=== PATIENT | male | born 1960 | race Caucasian/White ===

== ENCOUNTER 2018-08-11 09:36 | Emergency (ER) | payer MEDICAID ==
--- NOTE | 2018-08-11 10:35 | EDM.PDOC ---
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 He assumed his symptoms were from that, he does not get chest pain or shortness of breath with activity. Pain usually resolves after a few minutes but this morning while at work it redeveloped and was persistent so he thought it checked out. He has no shortness of breath, diaphoresis, radiation of pain, pain with breathing, cough or other symptoms. Duration: Week(s): (Symptoms have been intermittent for the past 7-10 days) Location: Reports: Chest Worsens with: Reports: Rest (Seem to be worse with rest today) Associated Symptoms: Denies: Cough, Diaphoresis, Fever/Chills, Loss of Appetite , Nausea/Vomiting, Shortness of Breath Chest Pain Score (Numeric/FACES): 5 - Related Data Allergies Allergy/AdvReac Type Severity Reaction Status Date / Time No Known Allergies Allergy Verified 08/11/18 09:49 Home Meds: Home Meds Aspirin [Halfprin] 81 mg PO DAILY 08/11/18 [History] Past Medical History HEENT History: Reports: Otitis Media Genitourinary History: Reports: Renal Calculus Musculoskeletal History: Reports: Fracture - Past Surgical History HEENT Surgical History: Reports: Other (See Below) Other HEENT Surgeries/Procedures: ear surgery GI Surgical History: Reports: Appendectomy Social & Family History - Tobacco Use Smoking Status *Q: Never Smoker - Caffeine Use Caffeine Use: Reports: Coffee - Recreational Drug Use Recreational Drug Use: No ED ROS GENERAL - Review of Systems Review Of Systems: See Below Constitutional: Denies: Fever, Chills HEENT: Denies: Throat Pain Respiratory: Reports: Other (Patient had a significant cold over the past 3 weeks with cough and fever, that has resolved in the last 7-10 days) Cardiovascular: Reports: Chest Pain, Blood Pressure Problem (Admits that his normal systolic blood pressures between 160 and 170, in the emergency room here today it's 195) GI/Abdominal: Denies: Nausea, Vomiting : Reports: No Symptoms Skin: Reports: No Symptoms Neurological: Denies: Dizziness, Headache Psychiatric: Reports: No Symptoms ED EXAM, GENERAL - Physical Exam Exam: See Below Exam Limited By: No Limitations General Appearance: Alert, No Apparent Distress Eye Exam: Bilateral Eye: Normal Inspection Throat/Mouth: Normal Inspection Head: Atraumatic Respiratory/Chest: No Respiratory Distress, Lungs Clear, Other (I can reproduce some chest tenderness with palpation of the right anterior chest, patient is unsure if it's the same) Cardiovascular: Regular Rate, Rhythm, No Murmur. No: Bradycardia, Tachycardia GI/Abdominal: Soft, Non-Tender Extremities: Normal Inspection. No: Pedal Edema Neurological: Alert, Oriented, CN II-XII Intact Psychiatric: Normal Affect, Normal Mood Skin Exam: Warm, Dry EKG INTERPRETATION Rhythm: NSR Course - Vital Signs Last Recorded V/S: Last Vital Signs Temp 94.8 F L 08/11/18 09:53 Pulse 57 L 08/11/18 11:23 Resp 16 08/11/18 11:23 BP 151/89 H 08/11/18 11:52 Pulse Ox 98 08/11/18 11:23 - Orders/Labs/Meds Labs: Laboratory Tests 08/11/18 08/11/18 Range/Units 10:31 10:31 WBC 7.1 (4.5-11.0) K/uL RBC 5.81 (4.30-5.90) M/uL Hgb 16.0 H (12.0-15.0) g/dL Hct 47.7 (40.0-54.0) % MCV 82 (80-98) fL MCH 28 (27-31) pg MCHC 34 (32-36) % Plt Count 147 L (150-400) K/uL Neut % (Auto) 70 H (36-66) % Lymph % (Auto) 20 L (24-44) % [place] % (Auto) 7 H (2-6) % Eos % (Auto) 2 (2-4) % Baso % (Auto) 1 (0-1) % Sodium 139 L (140-148) mmol/L Potassium 4.3 (3.6-5.2) mmol/L Chloride 103 (100-108) mmol/L Carbon Dioxide 29 (21-32) mmol/L Anion Gap 11.3 (5.0-14.0) mmol/L BUN 18 (7-18) mg/dL Creatinine 1.1 (0.8-1.3) mg/dL Est Cr Clr Drug Dosing 88.55 mL/min Estimated GFR (MDRD) > 60 (>60) Glucose 220 H (74-106) mg/dL Calcium 9.3 (8.5-10.1) mg/dL Total Bilirubin 0.7 (0.2-1.0) mg/dL AST 25 (15-37) U/L ALT 46 (12-78) U/L Alkaline Phosphatase 100 (46-116) U/L Troponin I 0.227 H* (0.000-0.056) ng/mL Total Protein 7.2 (6.4-8.2) g/dL Albumin 3.7 (3.4-5.0) g/dL Globulin 3.5 (2.3-3.5) g/dL Albumin/Globulin Ratio 1.1 L (1.2-2.2) Meds: Medications Discontinued Medications Generic Name Dose Route Start Last Admin Trade Name Gordonq PRN Reason Stop Dose Admin Aspirin 324 mg 08/11/18 11:02 08/11/18 11:12 Aspirin PO 08/11/18 11:03 324 mg ONETIME ONE Administration Heparin Sodium (Porcine) 5,000 units 08/11/18 11:17 08/11/18 11:26 Heparin Sodium IVPUSH 08/11/18 11:18 5,000 units ONETIME ONE Administration Heparin Sodium/Dextrose 25,000 units in 500 mls @ 20 mls/hr 08/11/18 11:30 11:31 Heparin 25,000 Units In D5w 500 Ml IV 1,000 units/hr TITRATE DARYL 20 mls/hr Administration Protocol 1,000 UNITS/HR Nitroglycerin 0.4 mg 08/11/18 11:07 08/11/18 11:52 Nitrostat SL 08/11/18 11:08 0.4 mg ONETIME ONE Administration Nitroglycerin Confirm 08/11/18 11:08 Nitrostat Administered 08/11/18 11:09 Dose 0.4 mg .ROUTE .STK-MED ONE - Re-Assessments/Exams Free Text/Narrative Re-Assessment/Exam: 08/11/18 10:35 EKG was done on patient arrival in its normal sinus rhythm. A two-view chest x- ray, CBC, CMP and troponin were obtained. 08/11/18 11:22 Two-view chest x-ray was normal, CBC normal, CMP revealed a glucose of 220 his troponin returned elevated at 0.227. He was given an additional 324 mg of chewable aspirin in addition to his full dose aspirin he had earlier this morning. I discussed his condition with cardiology in [place] at 11 AM, and they recommended transfer after a heparin bolus and drip. He was also given 1 sublingual nitroglycerin. His blood pressure normalized from a systolic of 195 to 164 without treatment. 08/11/18 17:17 Pain did resolve with the sublingual nitroglycerin. A nitroglycerin drip was initiated by EMS in route to [place]. Departure - Departure Time of Disposition: 11:36 Disposition: DC/Tfer to Other Clinical Impression: Acute coronary syndrome - Discharge Information Referrals: PCP,None [Primary Care Provider] - Forms: ED Department Discharge Care Plan Goals: Patient was sent to [place] by ambulance on a heparin drip, to be evaluated by cardiology for symptoms and laboratory evidence of possible non-STEMI.
--- NOTE | 2018-08-11 10:55 | CRLCR ---
INDICATION: Dyspnea TECHNIQUE: Chest 2 views. COMPARISON: 02/20/2009. FINDINGS: The heart size is borderline enlarged. Central vascular markings are within the normal range. The lungs are clear. There are no pleural effusions. Mild spondylosis changes present throughout the thoracic spine. IMPRESSION: No acute cardiopulmonary disease is evident. Dictated by Jeremi Styles MD @ Aug 11 2018 10:53AM Signed by Dr. Jeremi Styles @ Aug 11 2018 10:54AM
[2018-08-11] MEDS ORDERED: Aspirin 81 MG Tab.Chew PO ONE (11:02)
[2018-08-11] MEDS ORDERED: Nitroglycerin 0.4 MG Tab.SL ONE (11:08)
[2018-08-11] MEDS: Nitroglycerin 0.4 MG Tab.SL SL ONE ×2 (11:13→11:52)
[2018-08-11] MEDS ORDERED: Heparin Sodium 5,000 Units/ML Vial IVPUSH ONE (11:17)
[2018-08-11] MEDS ORDERED: Heparin Sodium/D5W 25,000 UNITS/500 ML BAG IV SCH (11:30)
== END 2018-08-11 11:59 | disposition other institution (70) ==
LOC: JP.ED 09:36
DX: I24.9 Acute ischemic heart disease, unspecified (principal); Z90.49 Acquired absence of other specified parts of digestive tract; Z79.82 Long term (current) use of aspirin
CPT/HCPCS: 36415; 71046; 80053; 84484; 85025; 93005; 96374; 99285; A9270; J1644

== ENCOUNTER 2018-08-26 10:54 | Emergency (ER) | payer MEDICAID ==
--- NOTE | 2018-08-26 11:20 | EDM.PDOC ---
ED HPI GENERAL MEDICAL PROBLEM - General Chief Complaint: Respiratory Problem Stated Complaint: FROM CLINIC HEART AND LUNG PRESSURES Time Seen by Provider: 08/26/18 11:15 Source of Information: Reports: Patient, Old Records, RN History Limitations: Reports: No Limitations - History of Present Illness INITIAL COMMENTS - FREE TEXT/NARRATIVE: 58 yo male here with SOB over the past couple of days that may be getting worse. Was seen in [facility] recently for a subacute VT and ended up with a CABG and a chest tube. He is not having any chest pain or fevers. No recent calf pain or LE edema. No hx of PE. Onset: Gradual Onset Date: 08/16/18 Duration: Getting Worse Location: Reports: Chest Quality: Reports: Other (no new pain) Severity: Mild Improves with: Reports: Rest Worsens with: Reports: Movement (exertion) Context: Reports: Other (see HPI) Associated Symptoms: Reports: No Other Symptoms. 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) (none) chest Pain Score (Numeric/FACES): 1 - Related Data Allergies Allergy/AdvReac Type Severity Reaction Status Date / Time No Known Allergies Allergy Verified 08/26/18 11:09 Home Meds: Home Meds Aspirin [Halfprin] 81 mg PO DAILY 08/11/18 [History] Acetaminophen/HYDROcodone [[place] 325-10 MG] 1 tab PO Q3H PRN 08/26/18 [History] Amiodarone [Cordarone] 200 mg PO BID 08/26/18 [History] Apixaban [Eliquis] 5 mg PO BID 08/26/18 [History] Furosemide 40 mg PO DAILY #7 tablet 08/26/18 [Rx] Metoprolol Tartrate [Lopressor] 100 mg PO BID 08/26/18 [History] Multivitamin [Multivitamins] 1 tab PO DAILY 08/26/18 [History] Omeprazole 20 mg PO DAILY 08/26/18 [History] atorvaSTATin [Lipitor] 20 mg PO BEDTIME 08/26/18 [History] metFORMIN [Glucophage] 1,000 mg OP BID 08/26/18 [History] Past Medical History HEENT History: Reports: Otitis Media Genitourinary History: Reports: Renal Calculus Musculoskeletal History: Reports: Fracture - Past Surgical History HEENT Surgical History: Reports: Other (See Below) Other HEENT Surgeries/Procedures: ear surgery GI Surgical History: Reports: Appendectomy Social & Family History - Caffeine Use Caffeine Use: Reports: Coffee ED ROS GENERAL - Review of Systems Review Of Systems: See Below Constitutional: Reports: No Symptoms HEENT: Reports: No Symptoms Respiratory: Reports: Shortness of Breath. Denies: Wheezing, Pleuritic Chest Pain, Cough, Sputum, Hemoptysis Cardiovascular: Reports: No Symptoms Endocrine: Reports: No Symptoms GI/Abdominal: Reports: No Symptoms : Reports: No Symptoms Musculoskeletal: Reports: No Symptoms Skin: Reports: No Symptoms Neurological: Reports: No Symptoms ED EXAM, GENERAL - Physical Exam Exam: See Below Exam Limited By: No Limitations General Appearance: Alert, WD/WN, No Apparent Distress Eye Exam: Bilateral Eye: Normal Inspection Ears: Normal External Exam, Normal Canal, Hearing Grossly Normal Ear Exam: Bilateral Ear: Auricle Normal, Canal Normal Nose: Normal Inspection, No Blood Throat/Mouth: Normal Inspection, Normal Lips, Normal Oropharynx, Normal Voice, No Airway Compromise Head: Atraumatic, Normocephalic Neck: Normal Inspection Respiratory/Chest: No Respiratory Distress, Decreased Breath Sounds (at bases), Crackles Cardiovascular: Regular Rate, Rhythm, No Edema Back Exam: Normal Inspection. No: CVA Tenderness (R), CVA Tenderness (L) Extremities: Normal Inspection, Normal Range of Motion, Non-Tender, No Pedal Edema Neurological: Alert, Oriented, CN II-XII Intact, Normal Cognition, No Motor/ Sensory Deficits Psychiatric: Normal Affect, Normal Mood Skin Exam: Warm, Dry, Intact, Normal Color, No Rash EKG INTERPRETATION EKG Date: 08/26/18 Time: 11:10 Rhythm: NSR Rate (Beats/Min): 89 [place]: Normal P-Wave: Present QRS: Normal ST-T: Normal QT: Normal Comparison: Change From Previous EKG (New flipped T's in anterior/lateral leads. ST segment subtle elevation now resolved. Poor R wave progression anterior leads has replaced the prior subtle ST elevation.) Course - Vital Signs Last Recorded V/S: Last Vital Signs Temp 36.1 C 08/26/18 11:15 Pulse 79 08/26/18 13:12 Resp 34 H 08/26/18 13:12 BP 113/55 L 08/26/18 13:12 Pulse Ox 97 08/26/18 13:12 - Orders/Labs/Meds Orders: Active Orders 24 hr Category Date Time Status Cardiac Monitoring [RC] .As Directed Care 08/26/18 11:14 Active Meds: Medications Discontinued Medications Generic Name Dose Route Start Last Admin Trade Name Chadd PRN Reason Stop Dose Admin Hydrocodone Bitart/Acetaminophen 1 tab 08/26/18 12:46 08/26/18 12:54 [place] 325-10 Mg PO 08/26/18 12:47 1 tab ONETIME ONE Administration - Radiology Interpretation Free Text/Narrative:: CXR-L pleural effusion(will compare to his discharge CXR at [facility]). No significant change noted when compared. Departure - Departure Time of Disposition: 13:45 Disposition: Home, Self-Care 01 Condition: Fair Clinical Impression: Pleural effusion, left, VELIZ (dyspnea on exertion) - Discharge Information *PRESCRIPTION DRUG MONITORING PROGRAM REVIEWED*: No *COPY OF PRESCRIPTION DRUG MONITORING REPORT IN PATIENT MELCHOR: No Prescriptions: Furosemide 40 mg PO DAILY #7 tablet Instructions: Pleural Effusion Referrals: Bobby Jha MD [Primary Care Provider] - Forms: ED Department Discharge Additional Instructions: Avoid salt. Take furosemide 40 mg every morning including one today. Activity as tolerated. F/U in the clinic with a doctor of your choice in the next week. Return if worse. - My Orders Last 24 Hours: My Active Orders 08/26/18 11:14 Cardiac Monitoring [RC] .As Directed - Assessment/Plan Last 24 Hours: My Active Orders 08/26/18 11:14 Cardiac Monitoring [RC] .As Directed
--- NOTE | 2018-08-26 12:06 | CR ---
CHEST: 2 view CLINICAL HISTORY:SOB COMPARISON:08/11/2018 FINDINGS: Patient has undergone interval sternotomy. Heart is enlarged. Pulmonary vascular areas cephalized. There is some mild interstitial prominence. Patient has a new moderate left effusion. There is a minimal right-sided blunting. Impression: Cardiomegaly with vascular cephalization Interval sternotomy New moderate left pleural effusion
[2018-08-26] MEDS ORDERED: Acetaminophen/HYDROcodone 325-10 MG Tab PO ONE (12:46)
== END 2018-08-26 14:17 | disposition home or self-care (01) ==
LOC: JP.ED 10:54
DX: J90 Pleural effusion, not elsewhere classified (principal); Z79.82 Long term (current) use of aspirin; Z79.899 Other long term (current) drug therapy; Z90.49 Acquired absence of other specified parts of digestive tract
CPT/HCPCS: 71046; 93005; 99284; A9270

== ENCOUNTER 2023-03-18 08:41 | Emergency (ER) | payer MEDICAID ==
[2023-03-18] MEDS ORDERED: Ketorolac 30 MG/ML SDV IM ONE (09:22)
== END 2023-03-18 10:36 | disposition home or self-care (01) ==
LOC: JP.ED 08:41
DX: S76.011A Strain of muscle, fascia and tendon of right hip, initial encounter (principal); I10 Essential (primary) hypertension; E78.00 Pure hypercholesterolemia, unspecified; I25.2 Old myocardial infarction; K21.9 Gastro-esophageal reflux disease without esophagitis; E11.9 Type 2 diabetes mellitus without complications; Z86.16 Personal history of COVID-19; Z95.1 Presence of aortocoronary bypass graft; Z90.49 Acquired absence of other specified parts of digestive tract; Z79.82 Long term (current) use of aspirin; Z79.899 Other long term (current) drug therapy; X58.XXXA Exposure to other specified factors, initial encounter
CPT/HCPCS: 73502; 96372; 99283; J1885

== ENCOUNTER 2023-10-26 12:59 | Emergency (ER) | payer MEDICAID ==
[2023-10-26 13:46] LABS: BASOPHILS ABSOLUTE AUTO 0.09 K/uL (0.00-0.10); BASOPHILS PERCENT AUTO 0.9 % (0.1-1.3); EOSINOPHILS ABSOLUTE AUTO 0.18 K/uL (0.00-0.40); EOSINOPHILS PERCENT AUTO 1.8 % (0.0-5.4); HEMATOCRIT 45.3 % (38.4-49.7); HEMOGLOBIN 15.8 g/dL (12.9-16.9); IMMATURE GRAN ABSOLUTE AUTO 0.03 K/uL (0.00-0.23); IMMATURE GRAN PERCENT AUTO 0.3 % (0.0-0.7); LYMPHOCYTES ABSOLUTE AUTO 2.95 K/uL (0.8-3.3); MEAN CORPUSCULAR HEMOGLOBIN 28.5 pg (31.6-35.5); MEAN CORPUSCULAR HGB CONC 34.9 g/dL (31.6-35.5); MEAN CORPUSCULAR VOLUME 81.8 fL (81.4-99.0); MONOCYTES ABSOLUTE AUTO 0.68 K/uL (0.20-0.90); MONOCYTES PERCENT AUTO 6.9 % (3.3-12.6); NEUTROPHILS PERCENT AUTO 60.1 % (40.0-78.1); PLATELET COUNT,PLT 183 K/uL (130-375); RED BLOOD CELL COUNT 5.54 M/uL (4.14-5.76); WHITE BLOOD CELL COUNT,WBC 9.8 K/uL (3.2-11.0)
[2023-10-26 13:54] LABS: INR 1.1; PTT,PARTIAL THROMBOPLSTIN TIME 24.7 sec (21.8-27.3)
[2023-10-26] MEDS: Sodium Chloride 0.9% 10 ML Syringe FLUSH ONE (13:54)
[2023-10-26] MEDS: Iopamidol 612 MG/ML 100 ML Bottle IV PRN (13:54)
[2023-10-26] MEDS: Sodium Chloride 0.9% 100 ML IV SCH (13:54)
[2023-10-26 13:57] LABS: A/G RATIO 1.1 (1.2-2.2); ALANINE AMINOTRANSFERASE,ALT 51 U/L (12-78); ALBUMIN 3.8 g/dL (3.4-5.0); ALKALINE PHOSPHATASE 79 U/L (46-116); ANION GAP 12.7 mmol/L (5.0-14.0); ASPARTATE AMNIOTRANSFERASE,AST 20 U/L (15-37); BILIRUBIN TOTAL 0.6 mg/dL (0.2-1.0); BLOOD UREA NITROGEN,BUN 15 mg/dL (7-18); CALCIUM 8.8 mg/dL (8.5-10.1); CARBON DIOXIDE,CO2 24 mmol/L (21-32); CHLORIDE,CL 104 mmol/L (100-108); CREATININE 1.2 mg/dL (0.8-1.3); EST CRCL DRUG DOSING (CG) 76.28 mL/min; ESTIMATED GFR 68 mL/min (>60); GLUCOSE RANDOM 248 mg/dL (74-106); MAGNESIUM 1.5 mg/dL (1.8-2.4); PHOSPHORUS 3.1 mg/dL (2.5-4.9); POTASSIUM,K 4.2 mmol/L (3.6-5.2); PROTEIN TOTAL,TP 7.4 g/dL (6.4-8.2); SODIUM,NA 141 mmol/L (140-148); TROPONIN I HIGH SENSITIVITY 5.3 pg/mL (<=60.3)
[2023-10-26] MEDS: Sodium Chloride 0.9% 500 ML IV ONE (14:02)
[2023-10-26 14:23] LABS: APPEARANCE,URINE CLEAR (CLEAR); BILIRUBIN,URINE NEGATIVE (NEGATIVE); COLOR,URINE YELLOW (YELLOW); GLUCOSE,URINE NEGATIVE (NEGATIVE); KETONES,URINE NEGATIVE (NEGATIVE); LEUKOCYTE ESTERASE,URINE NEGATIVE (NEGATIVE); NITRITE,URINE NEGATIVE (NEGATIVE); OCCULT BLOOD,URINE NEGATIVE (NEGATIVE); PH,URINE 5.5 (5.0-8.0); PROTEIN,URINE NEGATIVE (NEGATIVE); UROBILINOGEN,URINE 0.2 EU/dL (0.2-1.0)
[2023-10-26 14:28] LABS: AMORPHOUS SEDIMENT,URINE NOT SEEN; BACTERIA,URINE NOT SEEN; EPITHELIAL CELLS,URINE NOT SEEN; MUCUS,URINE NOT SEEN; RBC,URINE 0-5 (0-5); WBC,URINE NOT SEEN (0-5)
== END 2023-10-26 18:42 | disposition home or self-care (01) ==
LOC: JP.ED 12:59
DX: R20.0 Anesthesia of skin (principal); I10 Essential (primary) hypertension; I25.10 Atherosclerotic heart disease of native coronary artery without angina pectoris; I25.2 Old myocardial infarction; E78.00 Pure hypercholesterolemia, unspecified; E11.9 Type 2 diabetes mellitus without complications; Z86.16 Personal history of COVID-19; Z95.1 Presence of aortocoronary bypass graft; Z90.49 Acquired absence of other specified parts of digestive tract; Z79.82 Long term (current) use of aspirin; Z79.84 Long term (current) use of oral hypoglycemic drugs; Z79.899 Other long term (current) drug therapy
CPT/HCPCS: 36415; 70450; 70496; 70498; 71046; 80053; 81001; 82947; 83735; 84100; 84484; 85025; 85610; 85730; 93005; 93010; 96360; 99283; 99284; J3490; J7040; Q9967